=== PATIENT | female | born 1945 | race American Indian/Alaskan Native ===

== ENCOUNTER 2018-01-18 07:43 | Outpatient (CLI) | payer MEDICARE, OTHER ==
[2018-01-18] MEDS ORDERED: DULCOLAX PR ONE (08:52)
[2018-01-18] MEDS ORDERED: DULCOLAX PR NR (08:52)
--- NOTE | 2018-01-18 12:41 | Fluoroscopy Report ---
FLUOROSCOPY DEFAGRAM HISTORY: Colon cancer screening, diverticulosis, constipation. FINDINGS: Radial Router Operator film of the abdomen demonstrates an unremarkable bowel gas pattern. Lateral views of the rectum demonstrate no evidence for ulceration or mass. 27 fluoroscopic images were obtained. The images demonstrate a small rectocele which completely empties. There is also a moderate to large enterocele. No prolapse is appreciated. IMPRESSION: Small rectocele which completely empties. Moderate to large enterocele.
== END 2018-01-18 07:44 | disposition home or self-care (01) ==
LOC: FLUORO 07:43
PROVIDERS: ATTEND Internal Medicine Gastroenterology
DX: Z12.11 Encounter for screening for malignant neoplasm of colon (principal); J45.20 Mild intermittent asthma, uncomplicated; K46.9 Unspecified abdominal hernia without obstruction or gangrene; K57.30 Diverticulosis of large intestine without perforation or abscess without bleeding; N81.6 Rectocele; E66.01 Morbid (severe) obesity due to excess calories
CPT/HCPCS: 74270; Q9963